=== PATIENT | male | born 2000 | race Caucasian/White ===

== ENCOUNTER 2021-04-30 15:30 | Outpatient (CLI) | payer BC, SELFPAY ==
[2021-04-30 17:55] LABS: HIV - WCH Non-Reactive (Nonreactive)
== END 2021-04-30 23:59 | disposition short-term general hospital (02) ==
PROVIDERS: Visit Provider Nurse Practitioner Adult Health
DX: Z11.4 Encounter for screening for human immunodeficiency virus [HIV] (principal)
CPT/HCPCS: 36415; 86703